=== PATIENT | male | born 1960 | race Caucasian/White ===

== ENCOUNTER 2020-05-01 06:33 | Inpatient (IN) ==
[2020-05-01] MEDS ORDERED: Isovue-370 500 ML BOTTLE IVP ONE (06:45)
[2020-05-01 07:17] LABS: Hematocrit 33.8 % (37.5-50.1); Hemoglobin 10.7 g/dL (12.9-16.9); Mean Corpuscular HGB Conc 31.7 g/dL (31.6-35.5); Mean Corpuscular Hemoglobin 31.5 pg (28.0-33.3); Mean Corpuscular Volume 99.4 fL (83.0-100.0); Mean Platelet Volume 9.5 fL (9.4-12.4); Platelet Count 284 K/mcL (140-400); Red Cell Distribution Width 12.9 % (11.5-14.5); White Blood Count 9.8 K/mcL (4.3-11.1)
[2020-05-01 07:27] LABS: INR 0.9; Prothrombin Time 10.8 Seconds (9.4-12.1)
[2020-05-01 07:30] LABS: Activated Partial Thrombo Time 22.7 Seconds (26.0-36.0)
[2020-05-01 07:43] LABS: Calcium 8.7 mg/dL (8.6-10.3); Potassium 4.5 mEq/L (3.5-5.1); Troponin I 0.06 ng/mL (< 0.04)
[2020-05-01] MEDS ORDERED: 0.9 % Sodium Chloride 1,000 ML IVC ONE ×2 (07:45→11:02)
[2020-05-01] MEDS ORDERED: Ipratropium/Albuterol Neb 3 ML IH ONE (07:46)
[2020-05-01] MEDS ORDERED: Aspirin 325 MG TABLET PO ONE (07:54)
[2020-05-01 08:10] LABS: Bilirubin,Urine Negative (Negative); Blood,Urine Negative (Negative); Clarity,Urine Clear (Clear); Color,Urine Yellow (Yellow); Glucose,Urine (UA) Normal (Normal); Ketones,Urine Negative (Negative); Leukocyte Esterase,Urine Negative (Negative); Nitrite,Urine Negative (Negative); Protein,Urine Trace mg/dL (Neg-Trace); Specific Gravity,Urine 1.022 (1.010-1.025); Urobilinogen,Urine Normal (Normal)
[2020-05-01 08:22] LABS: ABG Base Excess 20 mEq/L (-2 to 3); ABG HCO3 52 mEq/L (21-27); ABG Oxygen Saturation 91 % (95-98); ABG PCO2 123 mmHg (35-45); ABG PH 7.23 pH Units (7.32-7.45); ABG PO2 79 mmHg (85-104); ABG TCO2 > 50 mEq/L (20-26)
[2020-05-01 08:24] LABS: Adenovirus Not Detected (Not Detect); Bordetella Pertussis Not Detected (Not Detect); Chlamydophila pneumoniae Not Detected (Not Detect); Coronavirus 229E Not Detected (Not Detect); Coronavirus HKU1 Not Detected (Not Detect); Coronavirus NL63 Not Detected (Not Detect); Coronavirus OC43 Not Detected (Not Detect); Human Metapneumovirus Not Detected (Not Detect); Human Rhinovirus/Enterovirus Not Detected (Not Detect); Influenza A Subtype 2009 H1 Not Detected (Not Detect); Influenza B Not Detected (Not Detect); Mycoplasma pneumoniae Not Detected (Not Detect); Parainfluenza Virus 1 Not Detected (Not Detect); Parainfluenza Virus 2 Not Detected (Not Detect); Parainfluenza Virus 3 Not Detected (Not Detect); Parainfluenza Virus 4 Not Detected (Not Detect); Respiratory Syncytial Virus Not Detected (Not Detect); SARS-CoV-2 Not Detected (Not Detect)
[2020-05-01 10:02] LABS: ABG Base Excess 16 mEq/L (-2 to 3); ABG HCO3 47 mEq/L (21-27); ABG Oxygen Saturation 90 % (95-98); ABG PCO2 122 mmHg (35-45); ABG PO2 78 mmHg (85-104); ABG TCO2 > 50 mEq/L (20-26); Blood Gas Modality AVAPS; Blood Gas VT 500 cc
[2020-05-01] MEDS ORDERED: 0.9 % Sodium Chloride 2,000 ML ONE (10:07)
[2020-05-01 11:04] LABS: ABG Base Excess 13 mEq/L (-2 to 3); ABG HCO3 45 mEq/L (21-27); ABG Oxygen Saturation 95 % (95-98); ABG PCO2 118 mmHg (35-45); ABG PH 7.18 pH Units (7.32-7.45); ABG PO2 99 mmHg (85-104); ABG TCO2 48 mEq/L (20-26); Blood Gas Modality AVAPS; Blood Gas VT 500 cc
[2020-05-01] MEDS ORDERED: methylPREDNISolone 125 MG/2 ML VIAL IVP ONE (11:04)
[2020-05-01] MEDS ORDERED: Piperacillin/Tazobactam 3.375 GM in Water for inj. (sterile) 20 ML IVP ONE (11:30)
[2020-05-01] MEDS ORDERED: Vancomycin 1,250 MG/262.5 ML IV.SOLN IVPB ONE (12:00)
[2020-05-01] MEDS: Norepinephrine 4 MG/254 ML IV.SOLN IVC SCH (12:01)
[2020-05-01 12:26] LABS: ABG Base Excess 13 mEq/L (-2 to 3); ABG HCO3 40 mEq/L (21-27); ABG Oxygen Saturation 100 % (95-98); ABG PCO2 63 mmHg (35-45); ABG PH 7.41 pH Units (7.32-7.45); ABG PO2 281 mmHg (85-104); ABG TCO2 42 mEq/L (20-26); Blood Gas Modality ASSIST CONTROL; Blood Gas VT 500 cc
[2020-05-01] MEDS ORDERED: Dexmedetomidine HCl 400 MCG/100 ML MLS IVC SCH (13:00)
[2020-05-01] MEDS ORDERED: *HR* Midazolam HCl 50 MG/10 ML VIAL IVC ONE (13:23)
[2020-05-01] MEDS ORDERED: *HR* FentaNYL (PF) 1,000 MCG/20 ML VIAL ONE (13:24)
[2020-05-01] MEDS ORDERED: Midazolam HCl 50 MG/100 ML IV.SOLN IVC SCH (13:30)
[2020-05-01] MEDS ORDERED: FentaNYL (PF) 1,000 MCG/100 ML IV.SOLN IVC SCH (13:30)
[2020-05-01] MEDS ORDERED: Naloxone 0.4 MG/ML INJ IVP PRN (14:08)
[2020-05-01] MEDS ORDERED: Artificial Tears SOLN 15 ML BOTTLE BOTH EYES PRN (14:12)
[2020-05-01] MEDS ORDERED: Vancomycin (wt based) 1,000 MG VIAL IVPB SCH (15:00)
[2020-05-01] MEDS ORDERED: *HR* Etomidate 20 MG/10 ML AMPUL IVP ONE (15:08)
[2020-05-01] MEDS ORDERED: *HR* Rocuronium Bromide 100 MG/10 ML VIAL IVP ONE (15:08)
[2020-05-01] MEDS: Piperacillin/Tazobactam 3.375 GM in 0.9 % Sodium Chloride Mini Bag 100 ML IVPB SCH (16:19)
[2020-05-01] MEDS: Artificial Tears SOLN 15 ML BOTTLE BOTH EYES SCH ×2 (16:19→20:02)
[2020-05-01] MEDS: *HR* Heparin 5,000 UNIT/ML VIAL SQ SCH (16:19)
[2020-05-01 16:58] LABS: ABG Base Excess 10 mEq/L (-2 to 3); ABG HCO3 36 mEq/L (21-27); ABG Oxygen Saturation 27 % (95-98); ABG PCO2 53 mmHg (35-45); ABG PH 7.43 pH Units (7.32-7.45); ABG PO2 18 mmHg (85-104); ABG TCO2 37 mEq/L (20-26); Blood Gas Modality ASSIST CONTROL; Blood Gas VT 450 cc
[2020-05-01] MEDS: FentaNYL (PF) 1,000 MCG/100 ML IV.SOLN IVC SCH (17:26)
[2020-05-01] MEDS: Midazolam HCl 50 MG/100 ML IV.SOLN IVC SCH (17:26)
[2020-05-01 17:50] LABS: ABG Base Excess 10 mEq/L (-2 to 3); ABG HCO3 33 mEq/L (21-27); ABG Oxygen Saturation 96 % (95-98); ABG PCO2 37 mmHg (35-45); ABG PH 7.56 pH Units (7.32-7.45); ABG PO2 68 mmHg (85-104); ABG TCO2 34 mEq/L (20-26); Blood Gas Modality ASSIST CONTROL; Blood Gas VT 450 cc
[2020-05-01] MEDS: Budesonide/Formoterol 160/4.5 1 PUFF INH IH SCH (19:40)
[2020-05-01] MEDS: Doxycycline 100 MG in 0.9 % Sodium Chloride Mini Bag 100 ML IVPB SCH (20:02)
[2020-05-01] MEDS: Chlorhexidine Rinse 15 ML MOUTHWASH MM SCH (20:02)
[2020-05-01 20:29] LABS: VBG HCO3 36 mEq/L (21-27); VBG PCO2 57 mmHg (41-51); VBG PH 7.41 pH Units (7.32-7.42); VBG PO2 52 mmHg (25-50)
[2020-05-02] MEDS: Piperacillin/Tazobactam 3.375 GM in 0.9 % Sodium Chloride Mini Bag 100 ML IVPB SCH ×4 (00:03→23:47)
[2020-05-02] MEDS: Artificial Tears SOLN 15 ML BOTTLE BOTH EYES SCH ×7 (00:03→23:48)
[2020-05-02] MEDS: MethylPREDNISolone 40 MG/ML VIAL IVP SCH ×4 (00:04→23:47)
[2020-05-02] MEDS: *HR* Heparin 5,000 UNIT/ML VIAL SQ SCH ×4 (00:04→23:46)
[2020-05-02] MEDS: FentaNYL (PF) 1,000 MCG/100 ML IV.SOLN IVC SCH ×3 (01:18→19:42)
[2020-05-02 03:51] LABS: Hematocrit 28.2 % (37.5-50.1); Mean Corpuscular HGB Conc 32.3 g/dL (31.6-35.5); Mean Corpuscular Hemoglobin 31.3 pg (28.0-33.3); Mean Corpuscular Volume 96.9 fL (83.0-100.0); Mean Platelet Volume 9.4 fL (9.4-12.4); Platelet Count 257 K/mcL (140-400); Red Blood Count 2.91 M/mcL (4.19-5.50); Red Cell Distribution Width 12.8 % (11.5-14.5); White Blood Count 5.4 K/mcL (4.3-11.1)
[2020-05-02 04:02] LABS: Hemoglobin 9.1 g/dL (12.9-16.9)
[2020-05-02] MEDS: Midazolam HCl 50 MG/100 ML IV.SOLN IVC SCH ×2 (04:06→04:32)
[2020-05-02 04:11] LABS: BUN/Creatinine Ratio 30 (6-26); Blood Urea Nitrogen 39 mg/dL (8-23); Calcium 7.9 mg/dL (8.6-10.3); Carbon Dioxide 33 mEq/L (23-29); Chloride 93 mEq/L (98-107); Glucose 203 mg/dL (70-105); Magnesium 1.9 mg/dL (1.6-2.6); Osmolality,Calculated 289 (280-300); Potassium 4.1 mEq/L (3.5-5.1); Sodium 132 mEq/L (136-145); eGFR For African Americans > 60 (> 60); eGFR For Non-African Americans 57 (> 60)
[2020-05-02 04:33] LABS: ABG Base Excess 9 mEq/L (-2 to 3); ABG HCO3 34 mEq/L (21-27); ABG Oxygen Saturation 98 % (95-98); ABG PCO2 46 mmHg (35-45); ABG PH 7.48 pH Units (7.32-7.45); ABG PO2 101 mmHg (85-104); ABG TCO2 35 mEq/L (20-26); Blood Gas Modality AF; Blood Gas VT 400 cc
[2020-05-02] MEDS: Doxycycline 100 MG in 0.9 % Sodium Chloride Mini Bag 100 ML IVPB SCH ×2 (05:56→17:04)
[2020-05-02] MEDS: Budesonide/Formoterol 160/4.5 1 PUFF INH IH SCH ×2 (07:34→19:37)
[2020-05-02] MEDS: Aspirin 81 MG TAB.CHEW PO SCH (07:44)
[2020-05-02] MEDS: Pantoprazole 40 MG VIAL IVP SCH (07:45)
[2020-05-02] MEDS: Chlorhexidine Rinse 15 ML MOUTHWASH MM SCH ×2 (07:45→19:23)
[2020-05-02] MEDS: Norepinephrine 4 MG/254 ML IV.SOLN IVC SCH (08:01)
[2020-05-02 09:35] LABS: Amphetamine Screen,Urine Negative ng/mL (Cutoff=1000); Barbiturate Screen,Urine Negative ng/mL (Cutoff=200); Benzodiazepines Screen,Urine Positive ng/mL (Cutoff=200); Cannabinoid Screen,Urine Negative ng/mL (Cutoff = 50); Cocaine Screen,Urine Negative ng/mL (Cutoff= 300); Opiate Screen,Urine Negative ng/mL (Cutoff=300); Phencyclidine Screen,Urine Negative ng/mL (Cutoff=25)
[2020-05-02] MEDS ORDERED: Dexmedetomidine HCl 400 MCG/100 ML MLS IVC SCH (11:30)
[2020-05-02] MEDS ORDERED: Vancomycin 1,250 MG/262.5 ML IV.SOLN IVPB SCH (12:00)
[2020-05-02] MEDS ORDERED: Furosemide 40 MG in 0.9 % Sodium Chloride 50 ML IV SCH (12:15)
[2020-05-02] MEDS: Furosemide 40 MG/4 ML VIAL IVP SCH (12:29)
[2020-05-02] MEDS ORDERED: FentaNYL (PF) 2,500 MCG/50 ML IV.SOLN IVC SCH (22:45)
[2020-05-03] MEDS: Artificial Tears SOLN 15 ML BOTTLE BOTH EYES SCH (03:25)
[2020-05-03 03:29] LABS: Hematocrit 29.4 % (37.5-50.1); Hemoglobin 9.6 g/dL (12.9-16.9); Mean Corpuscular HGB Conc 32.7 g/dL (31.6-35.5); Mean Platelet Volume 9.5 fL (9.4-12.4); Platelet Count 250 K/mcL (140-400)
[2020-05-03 03:38] LABS: Calcium 8.8 mg/dL (8.6-10.3); Magnesium 2.1 mg/dL (1.6-2.6); Potassium 4.2 mEq/L (3.5-5.1)
[2020-05-03 03:50] LABS: White Blood Count 9.1 K/mcL (4.3-11.1)
[2020-05-03 04:39] LABS: ABG Base Excess 8 mEq/L (-2 to 3); ABG HCO3 33 mEq/L (21-27); ABG Oxygen Saturation 95 % (95-98); ABG PCO2 48 mmHg (35-45); ABG PH 7.45 pH Units (7.32-7.45); ABG PO2 75 mmHg (85-104); ABG TCO2 35 mEq/L (20-26); Blood Gas VT 400 cc
[2020-05-03] MEDS: Doxycycline 100 MG in 0.9 % Sodium Chloride Mini Bag 100 ML IVPB SCH (05:40)
[2020-05-03] MEDS ORDERED: Ondansetron 4 MG/2 ML VIAL IVP PRN (06:38)
[2020-05-03] MEDS: Piperacillin/Tazobactam 3.375 GM in 0.9 % Sodium Chloride Mini Bag 100 ML IVPB SCH (07:25)
[2020-05-03] MEDS: MethylPREDNISolone 40 MG/ML VIAL IVP SCH ×2 (07:27→16:09)
[2020-05-03] MEDS: Furosemide 40 MG/4 ML VIAL IVP SCH (07:27)
[2020-05-03] MEDS: Pantoprazole 40 MG VIAL IVP SCH (07:27)
[2020-05-03] MEDS: *HR* Heparin 5,000 UNIT/ML VIAL SQ SCH ×2 (07:27→16:09)
[2020-05-03] MEDS: Acetaminophen 325 MG TABLET PO PRN ×2 (07:28→16:08)
[2020-05-03] MEDS: Chlorhexidine Rinse 15 ML MOUTHWASH MM SCH (07:28)
[2020-05-03] MEDS: Aspirin 81 MG TAB.CHEW PO SCH (07:28)
[2020-05-03] MEDS: Norepinephrine 4 MG/254 ML IV.SOLN IVC SCH (07:32)
[2020-05-03] MEDS: Budesonide/Formoterol 160/4.5 1 PUFF INH IH SCH ×2 (08:39→20:18)
[2020-05-03] MEDS ORDERED: Melatonin 3 MG TABLET PO PRN (20:39)
[2020-05-04] MEDS: MethylPREDNISolone 40 MG/ML VIAL IVP SCH ×2 (00:29→08:23)
[2020-05-04] MEDS: *HR* Heparin 5,000 UNIT/ML VIAL SQ SCH ×3 (00:29→15:56)
[2020-05-04] MEDS: Acetaminophen 325 MG TABLET PO PRN (00:54)
[2020-05-04 04:56] LABS: Hematocrit 27.9 % (37.5-50.1); Hemoglobin 9.4 g/dL (12.9-16.9); Mean Corpuscular HGB Conc 33.7 g/dL (31.6-35.5); Mean Corpuscular Hemoglobin 31.6 pg (28.0-33.3); Mean Corpuscular Volume 93.9 fL (83.0-100.0); Mean Platelet Volume 9.4 fL (9.4-12.4); Platelet Count 246 K/mcL (140-400); Red Blood Count 2.97 M/mcL (4.19-5.50); Red Cell Distribution Width 13.2 % (11.5-14.5); White Blood Count 7.1 K/mcL (4.3-11.1)
[2020-05-04 05:12] LABS: BUN/Creatinine Ratio 41 (6-26); Blood Urea Nitrogen 58 mg/dL (8-23); Calcium 8.6 mg/dL (8.6-10.3); Carbon Dioxide 34 mEq/L (23-29); Chloride 92 mEq/L (98-107); Glucose 178 mg/dL (70-105); Magnesium 2.1 mg/dL (1.6-2.6); Osmolality,Calculated 295 (280-300); Potassium 3.9 mEq/L (3.5-5.1); Sodium 132 mEq/L (136-145); eGFR For African Americans > 60 (> 60); eGFR For Non-African Americans 51 (> 60)
[2020-05-04] MEDS: Budesonide/Formoterol 160/4.5 1 PUFF INH IH SCH ×2 (07:34→20:07)
[2020-05-04] MEDS: Aspirin 81 MG TAB.CHEW PO SCH (08:13)
[2020-05-04] MEDS: Norepinephrine 4 MG/254 ML IV.SOLN IVC SCH (08:24)
[2020-05-04] MEDS: Pantoprazole 40 MG VIAL IVP SCH (08:24)
[2020-05-04] MEDS ORDERED: predniSONE 20 MG TABLET PO SCH (12:15)
[2020-05-04] MEDS ORDERED: carvediloL 25 MG TABLET PO SCH (14:15)
[2020-05-04] MEDS ORDERED: Acetaminophen 325 MG TABLET PO PRN (14:39)
[2020-05-04] MEDS ORDERED: Ondansetron 4 MG/2 ML VIAL IVP PRN (14:39)
[2020-05-04] MEDS ORDERED: Melatonin 3 MG TABLET PO PRN (14:39)
[2020-05-04] MEDS ORDERED: Naloxone 0.4 MG/ML INJ IVP PRN (14:39)
[2020-05-04] MEDS: carvediloL 25 MG TABLET PO SCH (17:10)
[2020-05-05] MEDS: *HR* Heparin 5,000 UNIT/ML VIAL SQ SCH ×3 (01:03→16:21)
[2020-05-05 02:12] LABS: Hematocrit 27.3 % (37.5-50.1); Hemoglobin 9.2 g/dL (12.9-16.9); Mean Corpuscular HGB Conc 33.7 g/dL (31.6-35.5); Mean Corpuscular Hemoglobin 31.9 pg (28.0-33.3); Mean Corpuscular Volume 94.8 fL (83.0-100.0); Mean Platelet Volume 9.5 fL (9.4-12.4); Platelet Count 244 K/mcL (140-400); Red Blood Count 2.88 M/mcL (4.19-5.50); Red Cell Distribution Width 13.2 % (11.5-14.5)
[2020-05-05 02:32] LABS: BUN/Creatinine Ratio 39 (6-26); Blood Urea Nitrogen 48 mg/dL (8-23); Calcium 8.7 mg/dL (8.6-10.3); Carbon Dioxide 33 mEq/L (23-29); Chloride 97 mEq/L (98-107); Glucose 189 mg/dL (70-105); Magnesium 2.2 mg/dL (1.6-2.6); Osmolality,Calculated 298 (280-300); Potassium 4.4 mEq/L (3.5-5.1); Sodium 135 mEq/L (136-145); eGFR For African Americans > 60 (> 60); eGFR For Non-African Americans 59 (> 60)
[2020-05-05] MEDS ORDERED: *HR* Atropine Sulfate 1 MG/10 ML SYRINGE ONE (05:55)
[2020-05-05] MEDS ORDERED: *HR* Atropine Sulfate 1 MG/10 ML SYRINGE IVP ONE ×2 (05:55→05:58)
[2020-05-05 06:02] LABS: ABG Base Excess 11 mEq/L (-2 to 3); ABG HCO3 39 mEq/L (21-27); ABG Oxygen Saturation 67 % (95-98); ABG PCO2 69 mmHg (35-45); ABG PH 7.36 pH Units (7.32-7.45); ABG PO2 38 mmHg (85-104); ABG TCO2 41 mEq/L (20-26)
[2020-05-05] MEDS: carvediloL 25 MG TABLET PO SCH (06:11)
[2020-05-05] MEDS ORDERED: Perflutren Lipid Microsphere 1.3 ML in 0.9 % Sodium Chloride 8.7 ML IVP PRN (07:26)
[2020-05-05] MEDS: predniSONE 20 MG TABLET PO SCH (09:04)
[2020-05-05] MEDS: Aspirin 81 MG TAB.CHEW PO SCH (09:04)
[2020-05-05] MEDS: Pregabalin 25 MG CAPSULE PO SCH ×2 (09:05→21:03)
[2020-05-05] MEDS: Furosemide 20 MG TABLET PO SCH (09:05)
[2020-05-05] MEDS ORDERED: acetaZOLAMIDE 250 MG in Water for inj. (sterile) 5 ML IVP ONE (11:32)
[2020-05-05] MEDS: Budesonide/Formoterol 160/4.5 1 PUFF INH IH SCH ×2 (11:43→19:53)
[2020-05-06] MEDS: *HR* Heparin 5,000 UNIT/ML VIAL SQ SCH ×4 (01:57→23:26)
[2020-05-06 03:25] LABS: Hematocrit 29.8 % (37.5-50.1); Hemoglobin 9.7 g/dL (12.9-16.9); Mean Corpuscular HGB Conc 32.6 g/dL (31.6-35.5); Mean Corpuscular Hemoglobin 32.6 pg (28.0-33.3); Mean Platelet Volume 9.7 fL (9.4-12.4); Platelet Count 257 K/mcL (140-400); Red Blood Count 2.98 M/mcL (4.19-5.50); Red Cell Distribution Width 13.5 % (11.5-14.5); White Blood Count 9.4 K/mcL (4.3-11.1)
[2020-05-06 03:46] LABS: BUN/Creatinine Ratio 33 (6-26); Blood Urea Nitrogen 40 mg/dL (8-23); Calcium 8.4 mg/dL (8.6-10.3); Carbon Dioxide 32 mEq/L (23-29); Chloride 100 mEq/L (98-107); Glucose 194 mg/dL (70-105); Magnesium 2.1 mg/dL (1.6-2.6); Osmolality,Calculated 297 (280-300); Sodium 136 mEq/L (136-145); eGFR For African Americans > 60 (> 60); eGFR For Non-African Americans > 60 (> 60)
[2020-05-06 04:21] LABS: ABG Base Excess 6 mEq/L (-2 to 3); ABG HCO3 33 mEq/L (21-27); ABG Oxygen Saturation 97 % (95-98); ABG PCO2 63 mmHg (35-45); ABG PH 7.34 pH Units (7.32-7.45); ABG PO2 99 mmHg (85-104); ABG TCO2 35 mEq/L (20-26)
[2020-05-06] MEDS: Budesonide/Formoterol 160/4.5 1 PUFF INH IH SCH ×2 (07:34→20:26)
[2020-05-06] MEDS: Melatonin 3 MG TABLET PO SCH ×2 (07:39→19:40)
[2020-05-06] MEDS: Aspirin 81 MG TAB.CHEW PO SCH (09:52)
[2020-05-06] MEDS: predniSONE 20 MG TABLET PO SCH (09:53)
[2020-05-06] MEDS: Furosemide 20 MG TABLET PO SCH (09:53)
[2020-05-06] MEDS: Pregabalin 25 MG CAPSULE PO SCH ×2 (09:53→19:40)
[2020-05-07 02:18] LABS: Hematocrit 28.7 % (37.5-50.1); Hemoglobin 9.4 g/dL (12.9-16.9); Mean Corpuscular HGB Conc 32.8 g/dL (31.6-35.5); Mean Corpuscular Hemoglobin 31.8 pg (28.0-33.3); Mean Platelet Volume 9.8 fL (9.4-12.4); Platelet Count 257 K/mcL (140-400); Red Blood Count 2.96 M/mcL (4.19-5.50); Red Cell Distribution Width 13.5 % (11.5-14.5); White Blood Count 10.6 K/mcL (4.3-11.1)
[2020-05-07 02:24] LABS: VBG HCO3 30 mEq/L (21-27); VBG PCO2 36 mmHg (41-51); VBG PH 7.53 pH Units (7.32-7.42); VBG PO2 141 mmHg (25-50)
[2020-05-07 02:38] LABS: BUN/Creatinine Ratio 34 (6-26); Blood Urea Nitrogen 38 mg/dL (8-23); Calcium 8.1 mg/dL (8.6-10.3); Carbon Dioxide 29 mEq/L (23-29); Chloride 101 mEq/L (98-107); Glucose 250 mg/dL (70-105); Osmolality,Calculated 297 (280-300); Potassium 4.3 mEq/L (3.5-5.1); Sodium 135 mEq/L (136-145); eGFR For African Americans > 60 (> 60); eGFR For Non-African Americans > 60 (> 60)
[2020-05-07] MEDS: Budesonide/Formoterol 160/4.5 1 PUFF INH IH SCH ×2 (07:22→20:05)
[2020-05-07] MEDS: predniSONE 20 MG TABLET PO SCH (08:28)
[2020-05-07] MEDS: Aspirin 81 MG TAB.CHEW PO SCH (08:28)
[2020-05-07] MEDS: Furosemide 20 MG TABLET PO SCH (08:28)
[2020-05-07] MEDS: *HR* Heparin 5,000 UNIT/ML VIAL SQ SCH (08:28)
[2020-05-07] MEDS: Pregabalin 25 MG CAPSULE PO SCH ×2 (08:28→20:10)
[2020-05-07] MEDS: amLODIPine 5 MG TABLET PO SCH (08:28)
[2020-05-07] MEDS: Melatonin 3 MG TABLET PO SCH (20:09)
[2020-05-08 03:46] LABS: BUN/Creatinine Ratio 33 (6-26); Blood Urea Nitrogen 34 mg/dL (8-23); Calcium 8.2 mg/dL (8.6-10.3); Carbon Dioxide 31 mEq/L (23-29); Chloride 98 mEq/L (98-107); Glucose 279 mg/dL (70-105); Osmolality,Calculated 294 (280-300); Potassium 4.4 mEq/L (3.5-5.1); Sodium 133 mEq/L (136-145); eGFR For African Americans > 60 (> 60); eGFR For Non-African Americans > 60 (> 60)
[2020-05-08 03:50] LABS: Hematocrit 30.1 % (37.5-50.1); Hemoglobin 9.6 g/dL (12.9-16.9); Mean Corpuscular HGB Conc 31.9 g/dL (31.6-35.5); Mean Corpuscular Hemoglobin 31.9 pg (28.0-33.3); Mean Platelet Volume 9.9 fL (9.4-12.4); Platelet Count 277 K/mcL (140-400); Red Blood Count 3.01 M/mcL (4.19-5.50); Red Cell Distribution Width 13.6 % (11.5-14.5); White Blood Count 10.5 K/mcL (4.3-11.1)
[2020-05-08] MEDS: Budesonide/Formoterol 160/4.5 1 PUFF INH IH SCH ×2 (07:35→19:53)
[2020-05-08] MEDS ORDERED: Acetaminophen 325 MG TABLET PO PRN (08:21)
[2020-05-08] MEDS: Furosemide 20 MG TABLET PO SCH (09:21)
[2020-05-08] MEDS: Pregabalin 25 MG CAPSULE PO SCH ×2 (09:21→20:00)
[2020-05-08] MEDS: amLODIPine 5 MG TABLET PO SCH (09:21)
[2020-05-08] MEDS: Aspirin 81 MG TAB.CHEW PO SCH (09:21)
[2020-05-08] MEDS: predniSONE 20 MG TABLET PO SCH (09:21)
[2020-05-08] MEDS: Melatonin 3 MG TABLET PO SCH (20:00)
[2020-05-08 21:20] LABS: Adenovirus Not Detected (Not Detect); Bordetella Pertussis Not Detected (Not Detect); Chlamydophila pneumoniae Not Detected (Not Detect); Coronavirus 229E Not Detected (Not Detect); Coronavirus HKU1 Not Detected (Not Detect); Coronavirus NL63 Not Detected (Not Detect); Coronavirus OC43 Not Detected (Not Detect); Human Metapneumovirus Not Detected (Not Detect); Human Rhinovirus/Enterovirus Not Detected (Not Detect); Influenza A Subtype 2009 H1 Not Detected (Not Detect); Influenza B Not Detected (Not Detect); Mycoplasma pneumoniae Not Detected (Not Detect); Parainfluenza Virus 1 Not Detected (Not Detect); Parainfluenza Virus 2 Not Detected (Not Detect); Parainfluenza Virus 3 Not Detected (Not Detect); Parainfluenza Virus 4 Not Detected (Not Detect); Respiratory Syncytial Virus Not Detected (Not Detect); SARS-CoV-2 Not Detected (Not Detect)
[2020-05-09 03:54] LABS: Basophils # 0.1 K/mcL (0.0-0.2); Basophils % 0.5 %; Eosinophils # 0.1 K/mcL (0.0-0.6); Eosinophils % 0.9 %; Hemoglobin 9.6 g/dL (12.9-16.9); Immature Granulocytes % 7.5 % (0-4); Lymphocytes # 1.6 K/mcL (0.6-4.6); Lymphocytes % 13.7 %; Mean Corpuscular HGB Conc 33.1 g/dL (31.6-35.5); Mean Corpuscular Hemoglobin 32.4 pg (28.0-33.3); Mean Platelet Volume 9.2 fL (9.4-12.4); Monocytes # 0.9 K/mcL (0.0-1.3); Monocytes % 7.8 %; Neutrophils # 8.1 K/mcL (1.6-8.9); Platelet Count 256 K/mcL (140-400); Red Blood Count 2.96 M/mcL (4.19-5.50); Red Cell Distribution Width 13.7 % (11.5-14.5); Segmented Neutrophils % 69.6 %; White Blood Count 11.6 K/mcL (4.3-11.1)
[2020-05-09 04:12] LABS: BUN/Creatinine Ratio 31 (6-26); Blood Urea Nitrogen 32 mg/dL (8-23); Calcium 8.7 mg/dL (8.6-10.3); Carbon Dioxide 38 mEq/L (23-29); Chloride 97 mEq/L (98-107); Glucose 125 mg/dL (70-105); Osmolality,Calculated 288 (280-300); Sodium 135 mEq/L (136-145); eGFR For African Americans > 60 (> 60); eGFR For Non-African Americans > 60 (> 60)
[2020-05-09 05:01] LABS: Platelet Estimate Normal (Normal)
[2020-05-09] MEDS: Budesonide/Formoterol 160/4.5 1 PUFF INH IH SCH ×2 (07:34→20:08)
[2020-05-09] MEDS: Pregabalin 25 MG CAPSULE PO SCH ×2 (08:06→20:51)
[2020-05-09] MEDS: Furosemide 20 MG TABLET PO SCH (08:06)
[2020-05-09] MEDS: Aspirin 81 MG TAB.CHEW PO SCH (08:07)
[2020-05-09] MEDS: predniSONE 20 MG TABLET PO SCH (08:07)
[2020-05-09] MEDS: amLODIPine 5 MG TABLET PO SCH (08:07)
[2020-05-09] MEDS ORDERED: *HR* Propofol 200 MG/20 ML VIAL IVP ONE (11:14)
[2020-05-09] MEDS ORDERED: Heparin 1,000 UNITS/500 mL 0 ML ONE (11:14)
[2020-05-09] MEDS ORDERED: *HR* Midazolam HCl 2 MG/2 ML VIAL ONE (11:14)
[2020-05-09] MEDS ORDERED: Lidocaine -MPF 2% 2 ML VIAL ONE ×2 (11:15→12:28)
[2020-05-09] MEDS ORDERED: *HR* Remifentanil 2 MG VIAL IVP ONE (11:22)
[2020-05-09] MEDS ORDERED: Lidocaine HCL 4 ML Topical Solution (Laryng-O-Jet Kit Sterile Pak) TP ONE (11:22)
[2020-05-09] MEDS ORDERED: Ondansetron 4 MG/2 ML VIAL IVP PRN ×2 (11:29→18:05)
[2020-05-09] MEDS ORDERED: *HR* HYDROmorphone PF 0.5 MG/0.5 ML SYRINGE IVP PRN (11:29)
[2020-05-09] MEDS ORDERED: Acetaminophen IV 1,000 MG/100 ML BAG IVPB PRN (11:29)
[2020-05-09] MEDS ORDERED: *HR* Labetalol 20 MG/4 ML SYRINGE IVP PRN ×2 (11:29→18:05)
[2020-05-09] MEDS ORDERED: Ringers Solution, Lactated 1,000 ML IVC SCH (11:30)
[2020-05-09] MEDS ORDERED: *HR* Phenylephrine 10 MG/ML VIAL ONE (11:33)
[2020-05-09] MEDS ORDERED: Vancomycin 1,000 MG, Sodium Chloride IRRigation 1,000 ML IR ONE (12:00)
[2020-05-09] MEDS ORDERED: Heparin 1,000 UNITS/500 mL 1,000 ML ONE (12:17)
[2020-05-09] MEDS ORDERED: *HR* Rocuronium Bromide 50 MG/5 ML VIAL ONE (12:31)
[2020-05-09] MEDS ORDERED: *HR* PHENYLEPHRINE 1,000 MCG/10 ML SYRINGE IVP ONE (13:00)
[2020-05-09] MEDS ORDERED: Protamine Sulfate 50 MG/5 ML VIAL IVP ONE ×3 (13:02→15:41)
[2020-05-09] MEDS ORDERED: Vancomycin 1,000 MG VIAL ONE ×2 (13:03→13:24)
[2020-05-09] MEDS ORDERED: Ondansetron 4 MG/2 ML VIAL ONE (13:41)
[2020-05-09] MEDS ORDERED: Dexamethasone 4 MG/ML VIAL ONE (13:41)
[2020-05-09] MEDS ORDERED: *HR* Heparin 5,000 UNIT/ML VIAL ONE ×2 (13:42→14:06)
[2020-05-09] MEDS ORDERED: Acetaminophen 325 MG TABLET PO PRN (18:05)
[2020-05-09] MEDS ORDERED: 0.9 % Sodium Chloride 1,000 ML IVC SCH (18:05)
[2020-05-09] MEDS ORDERED: Naloxone 0.4 MG/ML INJ IVP PRN (18:05)
[2020-05-09] MEDS: *HR* Metoprolol 5 MG/5 ML VIAL IVP SCH ×2 (20:32→23:31)
[2020-05-09] MEDS: CeFAZolin 2 GM/120 ML BAG IVPB SCH (20:40)
[2020-05-09] MEDS: Melatonin 3 MG TABLET PO SCH (20:43)
[2020-05-09] MEDS: *HR* HYDROcodone/Acet 5/325 mg TABLET PO PRN (20:50)
[2020-05-10 01:59] LABS: Basophils % 0.2 %; Hematocrit 26.5 % (37.5-50.1); Hemoglobin 8.6 g/dL (12.9-16.9); Lymphocytes # 0.6 K/mcL (0.6-4.6); Lymphocytes % 4.5 %; Mean Corpuscular HGB Conc 32.5 g/dL (31.6-35.5); Mean Corpuscular Hemoglobin 31.5 pg (28.0-33.3); Mean Corpuscular Volume 97.1 fL (83.0-100.0); Mean Platelet Volume 9.5 fL (9.4-12.4); Monocytes # 0.9 K/mcL (0.0-1.3); Monocytes % 6.4 %; Platelet Count 255 K/mcL (140-400); Red Blood Count 2.73 M/mcL (4.19-5.50); Red Cell Distribution Width 13.9 % (11.5-14.5); Segmented Neutrophils % 84.9 %; White Blood Count 14.1 K/mcL (4.3-11.1)
[2020-05-10 02:18] LABS: BUN/Creatinine Ratio 27 (6-26); Blood Urea Nitrogen 26 mg/dL (8-23); Carbon Dioxide 34 mEq/L (23-29); Chloride 95 mEq/L (98-107); Glucose 133 mg/dL (70-105); Osmolality,Calculated 283 (280-300); Potassium 4.2 mEq/L (3.5-5.1); Sodium 133 mEq/L (136-145); eGFR For African Americans > 60 (> 60); eGFR For Non-African Americans > 60 (> 60)
[2020-05-10] MEDS: *HR* Metoprolol 5 MG/5 ML VIAL IVP SCH (05:18)
[2020-05-10] MEDS: CeFAZolin 2 GM/120 ML BAG IVPB SCH (05:19)
[2020-05-10] MEDS: *HR* Heparin 5,000 UNIT/ML VIAL SQ SCH ×2 (05:20→16:55)
[2020-05-10] MEDS: Budesonide/Formoterol 160/4.5 1 PUFF INH IH SCH ×2 (07:25→19:54)
[2020-05-10] MEDS ORDERED: carvediloL 25 MG TABLET PO SCH (09:00)
[2020-05-10] MEDS: Aspirin 81 MG TAB.CHEW PO SCH (09:09)
[2020-05-10] MEDS: predniSONE 20 MG TABLET PO SCH (09:10)
[2020-05-10] MEDS: Furosemide 20 MG TABLET PO SCH (09:11)
[2020-05-10] MEDS: Pregabalin 25 MG CAPSULE PO SCH ×2 (09:12→19:42)
[2020-05-10] MEDS: *HR* HYDROcodone/Acet 5/325 mg TABLET PO PRN (16:54)
[2020-05-10 17:47] LABS: Hematocrit 27.7 % (37.5-50.1); Hemoglobin 8.8 g/dL (12.9-16.9)
[2020-05-10] MEDS: *HR* OxyCODONE Immed Rel 5 MG TABLET PO PRN (19:42)
[2020-05-10] MEDS: Melatonin 3 MG TABLET PO SCH (19:43)
[2020-05-11] MEDS: *HR* Heparin 5,000 UNIT/ML VIAL SQ SCH (05:46)
[2020-05-11 05:57] LABS: Basophils % 0.4 %; Eosinophils % 0.3 %; Hematocrit 28.4 % (37.5-50.1); Hemoglobin 9.2 g/dL (12.9-16.9); Immature Granulocytes % 4.6 % (0-4); Lymphocytes # 1.7 K/mcL (0.6-4.6); Lymphocytes % 15.1 %; Mean Corpuscular HGB Conc 32.4 g/dL (31.6-35.5); Mean Corpuscular Hemoglobin 32.3 pg (28.0-33.3); Mean Corpuscular Volume 99.6 fL (83.0-100.0); Mean Platelet Volume 9.3 fL (9.4-12.4); Monocytes # 0.9 K/mcL (0.0-1.3); Monocytes % 8.3 %; Neutrophils # 8.1 K/mcL (1.6-8.9); Nucleated Red Blood Cells 0.3 /100 WBC (0); Platelet Count 235 K/mcL (140-400); Red Blood Count 2.85 M/mcL (4.19-5.50); Red Cell Distribution Width 13.9 % (11.5-14.5); Segmented Neutrophils % 71.3 %; White Blood Count 11.3 K/mcL (4.3-11.1)
[2020-05-11 06:17] LABS: BUN/Creatinine Ratio 33 (6-26); Blood Urea Nitrogen 32 mg/dL (8-23); Calcium 8.5 mg/dL (8.6-10.3); Carbon Dioxide 35 mEq/L (23-29); Chloride 95 mEq/L (98-107); Glucose 107 mg/dL (70-105); Osmolality,Calculated 283 (280-300); Potassium 4.1 mEq/L (3.5-5.1); Sodium 133 mEq/L (136-145); eGFR For African Americans > 60 (> 60); eGFR For Non-African Americans > 60 (> 60)
[2020-05-11 06:57] VITALS: BP 153/82
[2020-05-11] MEDS: Budesonide/Formoterol 160/4.5 1 PUFF INH IH SCH (08:00)
[2020-05-11] MEDS ORDERED: carvediloL 6.25 MG TABLET PO SCH ×2 (08:34→08:37)
[2020-05-11] MEDS: Pregabalin 25 MG CAPSULE PO SCH (10:11)
[2020-05-11] MEDS: Aspirin 81 MG TAB.CHEW PO SCH (10:11)
[2020-05-11] MEDS: predniSONE 20 MG TABLET PO SCH (10:11)
[2020-05-11] MEDS: Furosemide 20 MG TABLET PO SCH (10:11)
[2020-05-11] MEDS: *HR* HYDROcodone/Acet 5/325 mg TABLET PO PRN (10:30)
[2020-05-11] MEDS: *HR* OxyCODONE Immed Rel 5 MG TABLET PO PRN (12:30)
== END 2020-05-11 12:56 | DRG 24 ==
LOC: EMEROOARM 06:33 → ICNU 13:52 → SUATTDRO 13:52 → ICNU 14:39 → 2ANU 05-04 18:11 → 2NNU 05-09 17:57
PROVIDERS: ADMIT Internal Medicine; ATTEND Student in an Organized Health Care Education/Training Program